=== PATIENT | female | born 1960 | race Caucasian/White ===

== ENCOUNTER → 2019-03-14 | Outpatient (CLI) | payer BC ==
[2015-09-04 14:04] VITALS: BP 150/100
[~2019-03-14] MED LIST: LISINOPRIL10 MG; ULTRAM50 M1 PO
== END ==
LOC: RAD 10:08
DX: M47.816 Spondylosis without myelopathy or radiculopathy, lumbar region (principal)

== ENCOUNTER → 2020-07-14 | Outpatient (CLI) | payer BC ==
[2015-09-04 14:04] VITALS: BP 150/100
== END ==
LOC: MAMMO 15:03
DX: Z12.31 Encounter for screening mammogram for malignant neoplasm of breast (principal)

== ENCOUNTER → 2024-05-29 | Outpatient (CLI) | payer BC | LOC: MAMMO 13:49 | DX: Z12.31 Encounter for screening mammogram for malignant neoplasm of breast (principal) ==